=== PATIENT | female | born 1990 | race Caucasian/White ===

== ENCOUNTER 2016-12-30 09:29 | Emergency (ER) | payer BC, OTHER ==
[2016-12-30 10:36] VITALS: BP 120/67
--- NOTE | 2016-12-30 10:48 | UC ---
Abdominal Pain Female HPI - HPI Summary HPI Summary: complaint of RUQ pain that started this morning and moved into RLQ had some vaginal bleeding this morning with several blood clots has some cramping pain in RLQ/LLQ this morning -non radiating denies fever and chills denies N/V/D denies dysuria hasn't taken any medication for pain 14 weeks - Esha aDwn OB /EMT/DISPATCHER - History of Current Complaint Chief Complaint: UCGU Stated Complaint: RIGHT SIDE PAIN () Time Seen by Provider: 12/30/16 10:37 Hx Obtained From: Patient Hx Last Menstrual Period: end of Sep- early Oct. Allergies/Adverse Reactions: Allergies Allergy/AdvReac Type Severity Reaction Status Date / Time No Known Allergies Allergy Verified 12/30/16 10:36 Home Medications: Home Medications Pediatric Multiple Vitamin W/ [Flintstones Gummies Plus] 2 chw PO QAM 12/30/16 [ History Confirmed 12/30/16] PMH/Surg Hx/FS Hx/Imm Hx Previously Healthy: Yes - 14 weeks - Surgical History Surgical History: None - Family History Known Family History: Negative: Cardiac Disease, Hypertension, Diabetes - Social History Occupation: Employed Full-time Lives: With Family Alcohol Use: None Substance Use Type: None Smoking Status (MU): Never Smoked Tobacco Review of Systems Constitutional: Negative Skin: Negative Eyes: Negative Respiratory: Negative Cardiovascular: Negative Gastrointestinal: Abdominal Pain Genitourinary: Other - vaginal spotting Motor: Negative Neurovascular: Negative Musculoskeletal: Negative Neurological: Negative Psychological: Negative All Other Systems Reviewed And Are Negative: Yes Physical Exam Triage Information Reviewed: Yes Appearance: No Pain Distress, Well-Nourished Vital Signs: Initial Vital Signs Temp 99.5 F 12/30/16 10:28 Pulse 77 12/30/16 10:28 Resp 20 12/30/16 10:28 BP 120/67 12/30/16 10:28 Pulse Ox 100 12/30/16 10:28 Vital Signs Reviewed: Yes Eyes: Positive: Conjunctiva Clear ENT: Positive: Pharynx normal, TMs normal. Negative: Nasal congestion Neck: Positive: No Lymphadenopathy Respiratory: Positive: Lungs clear, Normal breath sounds, No respiratory distress Cardiovascular: Positive: RRR, No Murmur, Pulses Normal Abdomen Description: Positive: Nontender, No Organomegaly, Soft. Negative: CVA Tenderness (R), CVA Tenderness (L), Distended, Guarding Bowel Sounds: Positive: Present Musculoskeletal: Positive: No Edema Neurological: Positive: Alert Psychological Exam: Normal Skin Exam: Normal - Additional Comments External genitalia without erythema, exudate or discharge. Vaginal vault is without discharge. Cervix is of normal color without lesion. The os is closed. There is no bleeding noted. Uterus nontender. No cervical motion tenderness is seen.The adnexa are without masses or tenderness Abd Pain Female Course/Dx - Course Course Of Treatment: exam completed. will send urine for culture d/t asymptomatic. US shows russell cardiac activity -complete placenta previa - will send to PRINTING SALES REPRESENTATIVE for further evaluation. Patient states understanding that if her pain or bleeding restarts to proceed to ED for further evaluation. - Differential Dx/Diagnosis Differential Diagnosis: Ovarian Cyst, Urinary Tract Infection, Other - miscarrage Provider Diagnoses: complete placenta previa, abdominal pain Discharge - Discharge Plan Condition: Stable Disposition: HOME Patient Education Materials: Placenta Previa (ED) Referrals: Elana Werner PA [Primary Care Provider] - Additional Instructions: Increase fluids and rest Take acetaminophen for fever or pain Please call your PRINTING SALES REPRESENTATIVE provider today to schedule followup appt and further evaluation Please review your discharge instructions. . If your symptoms do not improve please proceed to the ED for further treatment.
--- NOTE | 2016-12-30 12:22 | RAD ---
INDICATION: Early with bleeding. Limited evaluation COMPARISON: None TECHNIQUE: Transabdominal imaging was obtained to evaluate an early . This is not an anatomic survey. FINDINGS: There is a single intrauterine gestation in cephalic presentation. The heart rate is documented at 147 beats for minute. There is movement. The amniotic index appears normal. The placenta is anterior in location. There is complete placenta previa. The cervix is closed measuring 4.1 cm. The estimated gestational age based on biparietal diameter, head circumference, abdominal circumference, and femur length corresponds to 14 weeks 3 days, 14 weeks 2 days, 13 weeks 4 days, and 13 weeks 4 days resulting a composite value of 14 weeks 0 days. The estimated due date is June 30, 2017. Both ovaries appear normal. IMPRESSION: 14 WEEK 0 DAY GESTATION WITH CONFIRMATION OF CARDIAC ACTIVITY AND MOVEMENT. COMPLETE PLACENTA PREVIA. SUGGEST A FOLLOW-UP ANATOMIC STUDY. THE PLACENTA CAN ALSO BE REEVALUATED AT THIS TIME.
== END 2016-12-30 12:49 | disposition home or self-care (01) ==
LOC: UCCORT 09:29
DX: O44.12 Complete placenta previa with hemorrhage, second trimester (principal); Z3A.14 14 weeks gestation of pregnancy
CPT/HCPCS: 76815; 81025; 87086; 99212; G0463

== ENCOUNTER 2018-04-23 18:01 | Emergency (ER) | payer BC ==
[2018-04-23 18:32] VITALS: BP 117/63
--- NOTE | 2018-04-23 18:37 | UC ---
Throat Pain/Nasal Eugenio HPI - HPI Summary HPI Summary: 28 y/o female presents to the urgent care c/o sinus congestion w/ clear nasal discharge, sinus pressure and EVANS since yesterday. Symptoms are worse when he bends over . Pain is 7/10 w/ also b/l ear pressure. He has tried Mucinex and Sudafed to alleviate symptoms w/o any relief. Pt denies fever, SOB cough chest pain, abdominal pain, N/V/D - History of Current Complaint Chief Complaint: UCGeneralIllness Stated Complaint: SINUS/EVANS Time Seen by Provider: 04/23/18 18:36 Hx Obtained From: Patient Hx Last Menstrual Period: 03/22/18 ?: No Onset/Duration: Gradual Onset, Lasting Days - 1 day Severity: Moderate Pain Intensity: 6 Pain Scale Used: 0-10 Numeric Cough: None Associated Signs & Symptoms: Positive: Sinus Discomfort, Nasal Discharge Related History: Seasonal Allergies - Epiglottits Risk Factors Epiglottis Risk Factors: Negative - Allergies/Home Medications Allergies/Adverse Reactions: Allergies Allergy/AdvReac Type Severity Reaction Status Date / Time No Known Allergies Allergy Verified 04/23/18 18:31 Home Medications: Home Medications Norgestimate-Eth Estradiol(NF) [Ortho Tri-Cyclen (NF)] 1 tab PO BEDTIME [History Confirmed 04/23/18] PMH/Surg Hx/FS Hx/Imm Hx Previously Healthy: Yes Other Respiratory History: Recurrent sinusitis - Surgical History Surgical History: None - Family History Known Family History: Positive: None - Pt denies FMHX Negative: Cardiac Disease, Hypertension, Diabetes - Social History Occupation: Employed Full-time Lives: With Family Alcohol Use: Rare Substance Use Type: None Smoking Status (MU): Never Smoked Tobacco Review of Systems Constitutional: Negative Skin: Negative Eyes: Negative ENT: Ear Ache - B/L ear pressure, Nasal Discharge, Sinus Congestion, Sinus Pain/ Tenderness Respiratory: Negative Cardiovascular: Negative Gastrointestinal: Negative Genitourinary: Negative Motor: Negative Neurovascular: Negative Musculoskeletal: Negative Neurological: Headache Is Patient Immunocompromised?: No All Other Systems Reviewed And Are Negative: Yes Physical Exam - Summary Physical Exam Summary: Vitals: reviewed General: Well developed, well-nourished female patient with NAD. Head and face: Normocephalic and atraumatic, Positive tenderness over the frontal and maxillary sinuses.. Eyes: PERRLA, EOMI x 2. Normal conjunctiva. No eye discharge. ENT: Ears and TM with normal limits. Nose: edematous and erythematous nasal mucosa with moderate clear discharge and erythematous mucosa. Pharynx with erythema, no exudate. +PND clear Neck: Supple, no JVD, no carotid bruits and no lymphadenopathy. Lungs: clear, no rales, no rhonchi, no wheezes. CVS: RRR, S1 and S2 present no murmurs or gallops appreciated. Abdomen: soft nontender with positive bowel sounds. Extremities: no edema noted. Neuro: WNL. Skin: warm and dry Triage Information Reviewed: Yes Vital Signs: Initial Vital Signs Temp 99.3 F 04/23/18 18:26 Pulse 87 04/23/18 18:26 Resp 17 04/23/18 18:26 BP 117/63 04/23/18 18:26 Pulse Ox 100 04/23/18 18:26 Throat Pain/Nasal Course/Dx - Course Course Of Treatment: 28 y/o female presents to the urgent care c/o sinus congestion w/ clear nasal discharge, sinus pressure and EVANS since yesterday. Symptoms are worse when he bends over . Pain is 7/10 w/ also b/l ear pressure. He has tried Mucinex and Sudafed to alleviate symptoms w/o any relief. Pt denies fever, SOB cough chest pain, abdominal pain, N/V/D. Hx obtained. Pt with moderate allergic sinusitis on examination. Pt Rx Claritin PO,Prednisone PO, flonase nasal spray, increase fluid intake, rest and eat well. Take Ibuprofen PO for sinus pain or headache. Pt explained D/C instructions. Pt understood and agreed with plan of care. - Differential Dx/Diagnosis Differential Diagnosis/HQI/PQRI: Laryngitis, Pharyngitis, Sinusitis, URI Provider Diagnoses: 1- Acute rhinosinusitis Discharge - Sign-Out/Discharge Documenting (check all that apply): Discharge/Admit/Transfer - D/C home - Discharge Plan Condition: Stable Disposition: HOME Prescriptions: Cetirizine* [ZyrTEC 10 MG TAB*] 10 mg PO DAILY #20 tab Fluticasone NASAL SPRAY 50MCG* [Flonase NASAL SPRAY 50MCG*] 2 spray BOTH NARES DAILY #1 btl Ibuprofen TAB* [Motrin TAB* 800 MG] 800 mg PO Q6H PRN #20 tab PRN Reason: Headache predniSONE TAB* [Deltasone 20 MG TAB*] 20 mg PO DAILY #11 tab Patient Education Materials: Rhinosinusitis (ED) Referrals: Elana Werner PA [Primary Care Provider] - 3 Days Additional Instructions: 1- Please increase fluid intake and rest. take Prednisone PO taper dose to alleviat symptoms 2-Use Flonase as directed to help drain fluid. Also buy saline drops to clear sinuses 3-Take Claritin PO to alleviates sinus congestion. Take Ibuprofen PO q6-8hrs prn to alleviate headache 4-Return to the clinic or PCP if symptoms do not improve for further management and treatment - Billing Disposition and Condition Condition: STABLE Disposition: HOME
[2018-04-23] MEDS ORDERED: Ibuprofen TAB* 400 MG PO ONE (18:48)
== END 2018-04-23 19:16 | disposition home or self-care (01) ==
LOC: UCCORT 18:01
DX: J01.90 Acute sinusitis, unspecified (principal)
CPT/HCPCS: 99212; A9270-GY; G0463